=== PATIENT | male | born 1985 | race Caucasian/White ===

== ENCOUNTER 2024-06-21 11:37 | Inpatient (IN) | payer OTHER ==
[2024-06-21 12:44] VITALS: BMI 23.0
[2024-06-21] MEDS ORDERED: BISMUTH SUBSALICYLATE 524 MG/30 ML PO PRN (16:15)
[2024-06-21] MEDS ORDERED: guaiFENesin 600 MG TABLET.ER (FP) PO PRN (16:15)
[2024-06-21] MEDS ORDERED: LOPERAMIDE HCL 2 MG CAPSULE PO PRN (16:15)
[2024-06-21] MEDS ORDERED: BENZOCAINE/MENTHOL (CHLORASEPTIC ) LOZENGE MM PRN (16:15)
[2024-06-21] MEDS ORDERED: ONDANSETRON *ODT* 4 MG TABLET SL PRN (16:15)
[2024-06-21] MEDS ORDERED: IBUPROFEN 400 MG TABLET (FP) PO PRN (16:15)
[2024-06-21] MEDS ORDERED: POLYETHYLENE GLYCOL (HEALTHYLAX) 3350 17 GM PACKET PO PRN (16:15)
[2024-06-21] MEDS ORDERED: MAGNESIUM HYDROX 2400MG/30ML ORAL SUSPENSION 30 ML CUP PO PRN (16:15)
[2024-06-21] MEDS ORDERED: ACETAMINOPHEN 325 MG TABLET (FP) PO PRN (16:15)
[2024-06-21] MEDS ORDERED: BENZONATATE 200 MG CAPSULE PO PRN (16:15)
[2024-06-21] MEDS ORDERED: DICYCLOMINE HCL 10 MG CAPSULE PO PRN (16:15)
[2024-06-21] MEDS ORDERED: NALOXONE (NARCAN) HCL 4 MG/0.1 ML SPRAY NS PRN (16:15)
[2024-06-21] MEDS: cloNIDine HCL 0.1 MG TABLET PO SCH (17:51)
[2024-06-21] MEDS: MELATONIN 5 MG TABLETS PO SCH (23:26)
[2024-06-21] MEDS: THIAMINE 100 MG TABLET PO SCH (23:26)
[2024-06-22] MEDS: hydrOXYzine PAMOATE 25 MG CAPSULE (FP) PO PRN (06:09)
[2024-06-22] MEDS: METHOCARBAMOL 500 MG TABLET PO PRN (06:09)
[2024-06-22] MEDS: methaDONE HCL 10 MG TABLET PO ONE (10:55)
[2024-06-22] MEDS: PRENATAL VITAMINS W/ FOLIC ACID TABLET (FP) PO SCH (10:56)
[2024-06-22] MEDS ORDERED: methaDONE HCL 10 MG TABLET PO SCH (11:15)
[2024-06-22] MEDS: methaDONE 80 MG, methaDONE 20 MG PO SCH (11:27)
[2024-06-22] MEDS: OLANZapine 5 MG TABLET PO ONE (12:50)
[2024-06-22] MEDS: CLOTRIMAZOLE 1% CREAM TP SCH (13:10)
[2024-06-22] MEDS: OLANZapine 5 MG TABLET PO SCH (23:18)
[2024-06-22] MEDS: IBUPROFEN 600 MG TABLET (FP) PO PRN (23:18)
[2024-06-23] MEDS ORDERED: cloNIDine HCL 0.1 MG TABLET PO PRN
[2024-06-23] MEDS: methaDONE HCL 10 MG TABLET PO ONE (10:04)
[2024-06-23] MEDS ORDERED: NICOTINE POLACRILEX 4 MG GUM BUC PRN (15:12)
[2024-06-23] MEDS: NICOTINE 21 MG/24 HOURS TOPICAL PATCH TD SCH (15:55)
[2024-06-24] MEDS: LEVOTHYROXINE NA 100 MCG TABLET (FP) PO SCH (10:10)
[2024-06-24] MEDS: methaDONE HCL 10 MG TABLET PO ONE (10:11)
[2024-06-24 17:48] LABS: HEMATOCRIT 41.6 % (40.1-51.0); MCHC 31.3 g/dl (32.3-36.5); MEAN PLT VOLUME 10.2 fl (9.4-12.4); PLATELET COUNT 265 x10^3/uL (163-337); RDW 13.7 % (12.0-15.6)
[2024-06-24 17:52] LABS: POTASSIUM 4.4 mmol/L (3.5-5.1)
[2024-06-24 17:55] LABS: ALBUMIN 3.9 g/dl (3.4-5.0); CALCIUM 9.8 mg/dL (8.5-10.1)
[2024-06-24 18:00] LABS: BILIRUBIN,TOTAL 0.5 mg/dL (0.2-1); TOT PROT 9.1 g/dl (6.4-8.2)
[2024-06-25] MEDS ORDERED: methaDONE HCL 10 MG TABLET (FOR DETOX USE ONLY) PO ONE (10:14)
[2024-06-25] MEDS: methaDONE 80 MG, methaDONE 20 MG PO ONE (10:33)
[2024-06-25] MEDS: OLANZapine 10 MG TABLET PO SCH (21:22)
[2024-06-25] MEDS: LEVOTHYROXINE 100 MCG, LEVOTHYROXINE 50 MCG PO ONE (21:22)
[2024-06-25] MEDS ORDERED: LEVOTHYROXINE NA 25 MCG TABLET (FP) PO ONE (22:00)
[2024-06-26] MEDS: methaDONE HCL 10 MG TABLET PO ONE (10:03)
[2024-06-26] MEDS: MAG HYDROX/AL HYDROX/SIMETH 30 ML UNIT-DOSE CUP PO PRN (20:36)
[2024-06-27 06:02] VITALS: TEMP 97.6
[2024-06-27 09:07] VITALS: RESP 18
[2024-06-27] MEDS ORDERED: LEVOTHYROXINE NA 100 MCG TABLET (FP) PO SCH (09:23)
[2024-06-27] MEDS: methaDONE HCL 10 MG TABLET PO ONE (09:39)
[2024-06-27 13:05] VITALS: BP 121/71; PULSE 79
[2024-06-28] MEDS ORDERED: LEVOTHYROXINE 100 MCG, LEVOTHYROXINE 25 MCG PO SCH (07:00)
== END 2024-06-27 14:41 | disposition other institution (70) | DRG 773 ==
LOC: YASAS 11:37 → Y3N 17:01
PROVIDERS: ADMIT Allergy & Immunology; ATTEND Family Medicine Addiction Medicine
PROC: HZ2ZZZZ Detoxification Services for Substance Abuse Treatment (ICD-10-PCS; principal; 2024-06-21)
DX: F11.23 Opioid dependence with withdrawal (principal); F14.20 Cocaine dependence, uncomplicated; F16.20 Hallucinogen dependence, uncomplicated; F15.20 Other stimulant dependence, uncomplicated; F12.20 Cannabis dependence, uncomplicated; F17.210 Nicotine dependence, cigarettes, uncomplicated; E03.9 Hypothyroidism, unspecified; Z86.19 Personal history of other infectious and parasitic diseases; Z56.0 Unemployment, unspecified; Z59.00 Homelessness unspecified
CPT/HCPCS: 36415; 80053; 80305; 80307; 84439; 84443; 85027; 86780; 87811; 93005; 93010

== ENCOUNTER 2024-06-27 14:51 | Inpatient (IN) | payer OTHER ==
[2024-06-27] MEDS ORDERED: NALOXONE (NARCAN) HCL 4 MG/0.1 ML SPRAY NS PRN (15:39)
[2024-06-27] MEDS ORDERED: MAGNESIUM HYDROX 2400MG/30ML ORAL SUSPENSION 30 ML CUP PO PRN (15:39)
[2024-06-27] MEDS ORDERED: NALOXONE HCL 0.4 MG/ML VIAL IVPUSH PRN (15:39)
[2024-06-27] MEDS ORDERED: POLYETHYLENE GLYCOL (HEALTHYLAX) 3350 17 GM PACKET PO PRN (15:39)
[2024-06-27] MEDS ORDERED: IBUPROFEN 400 MG TABLET (FP) PO PRN (15:39)
[2024-06-27] MEDS ORDERED: BENZONATATE 200 MG CAPSULE PO PRN (15:39)
[2024-06-27] MEDS ORDERED: guaiFENesin 600 MG TABLET.ER (FP) PO PRN (15:39)
[2024-06-27] MEDS ORDERED: ACETAMINOPHEN 325 MG TABLET (FP) PO PRN (15:39)
[2024-06-27] MEDS ORDERED: BENZOCAINE/MENTHOL (CHLORASEPTIC ) LOZENGE MM PRN (15:39)
[2024-06-27] MEDS ORDERED: hydrOXYzine PAMOATE 25 MG CAPSULE (FP) PO PRN (15:39)
[2024-06-27] MEDS ORDERED: LOPERAMIDE HCL 2 MG CAPSULE PO PRN (15:39)
[2024-06-27] MEDS ORDERED: METHOCARBAMOL 500 MG TABLET PO PRN (15:39)
[2024-06-27] MEDS ORDERED: DICYCLOMINE HCL 10 MG CAPSULE PO PRN (15:49)
[2024-06-27] MEDS ORDERED: NICOTINE POLACRILEX 4 MG GUM BUC PRN (15:54)
[2024-06-27] MEDS ORDERED: ONDANSETRON *ODT* 4 MG TABLET SL PRN (15:56)
[2024-06-27] MEDS ORDERED: TUBERCULIN PPD 5 TU/0.1ML VIAL ID ONE (18:30)
[2024-06-27] MEDS: CLOTRIMAZOLE 1% CREAM TP SCH (21:03)
[2024-06-27] MEDS: THIAMINE 100 MG TABLET PO SCH (21:03)
[2024-06-27] MEDS: IBUPROFEN 600 MG TABLET (FP) PO PRN (21:03)
[2024-06-27] MEDS: MELATONIN 5 MG TABLETS PO SCH (21:03)
[2024-06-27] MEDS: OLANZapine 10 MG TABLET PO ONE (21:32)
[2024-06-28] MEDS ORDERED: methaDONE HCL 40 MG DISPERSABLE TABLET PO SCH (06:00)
[2024-06-28] MEDS: LEVOTHYROXINE 100 MCG, LEVOTHYROXINE 25 MCG PO SCH (06:15)
[2024-06-28] MEDS ORDERED: LEVOTHYROXINE NA 125 MCG TABLET (FP) PO SCH (10:00)
[2024-06-28] MEDS: NICOTINE 21 MG/24 HOURS TOPICAL PATCH TD SCH (11:13)
[2024-06-28] MEDS: PRENATAL VITAMINS W/ FOLIC ACID TABLET (FP) PO SCH (11:13)
[2024-06-29] MEDS: MAG HYDROX/AL HYDROX/SIMETH 30 ML UNIT-DOSE CUP PO PRN (06:15)
[2024-06-30] MEDS: FAMOTIDINE 20 MG TABLET PO SCH (09:42)
[2024-06-30] MEDS: OLANZapine 7.5 MG TABLET PO SCH (21:50)
[2024-07-01] MEDS: CEPHALEXIN MONOHYDRATE 500 MG CAPSULE (UD) PO SCH (12:14)
[2024-07-03] MEDS: ALBUTEROL SO4 HFA INHALER IH PRN (13:32)
[2024-07-05] MEDS ORDERED: ALBUTEROL SO4 2.5/IPRATROPIUM 0.5 INH SOL 3 ML VIAL.NEB. NEB PRN ×2 (10:35→11:16)
[2024-07-05] MEDS ORDERED: ALBUTEROL SO4 2.5/IPRATROPIUM 0.5 INH SOL 3 ML VIAL.NEB. NEB SCH (10:45)
[2024-07-05] MEDS ORDERED: ALBUTEROL SO4 HFA INHALER IH PRN (10:59)
[2024-07-05] MEDS: BUDESONIDE/FORMETEROL FUMARATE 80/4.5 mcg INHALER IH ONE (12:12)
[2024-07-05] MEDS ORDERED: PENICILLIN G BENZATHINE 2,400,000 UNIT/4 ML PFS IM ONE (14:00)
[2024-07-05] MEDS: ALBUTEROL SO4 HFA INHALER IH PRN (21:39)
[2024-07-06] MEDS ORDERED: ALBUTEROL SO4 HFA INHALER IH PRN (11:01)
[2024-07-14] MEDS: OLANZapine 5 MG TABLET PO SCH (23:37)
[2024-07-16 06:07] VITALS: BP 121/62; PULSE 92; RESP 16; TEMP 97.7
[2024-07-17] MEDS ORDERED: LEVOTHYROXINE NA 100 MCG TABLET (FP) PO SCH (06:00)
[2024-07-17] MEDS ORDERED: LEVOTHYROXINE 100 MCG, LEVOTHYROXINE 50 MCG PO SCH (07:00)
== END 2024-07-16 11:47 | disposition home or self-care (01) | DRG 772 ==
LOC: YASAS 14:51 → Y3W 14:52
PROVIDERS: ADMIT Allergy & Immunology; ATTEND Allergy & Immunology
PROC: HZ42ZZZ Group Counseling for Substance Abuse Treatment, Cognitive-Behavioral (ICD-10-PCS; principal; 2024-06-27)
DX: F11.20 Opioid dependence, uncomplicated (principal); F14.20 Cocaine dependence, uncomplicated; F16.20 Hallucinogen dependence, uncomplicated; F11.24 Opioid dependence with opioid-induced mood disorder; F17.210 Nicotine dependence, cigarettes, uncomplicated; F41.9 Anxiety disorder, unspecified; E03.9 Hypothyroidism, unspecified; J45.901 Unspecified asthma with (acute) exacerbation; K21.9 Gastro-esophageal reflux disease without esophagitis; B18.2 Chronic viral hepatitis C; R60.0 Localized edema
CPT/HCPCS: 36415; 84436; 84439; 84443